=== PATIENT | female | born 1970 | race Caucasian/White ===

== ENCOUNTER 2017-02-16 01:57 | Emergency (ER) | payer OTHER ==
[~2017-02-16] VITALS: Ht 162.6 cm; Wt 109.0 kg
[~2017-02-16 01:57] MED LIST: AMOX1TAB64 PO; LEVO500T8 PO; OXYC1TAB7 PO; SULF1TAB3 PO
[2017-02-16] MEDS ORDERED: ASPIRIN 81 MG TABLET CHEW ONE (03:20)
[2017-02-16] MEDS ORDERED: ASPIRIN 81 MG TABLET CHEW PO ONE (03:30)
[2017-02-16 03:37] LABS: HEMOGLOBIN 12.4 g/dL (11.7-16.4)
[2017-02-16 03:49] LABS: ASPARTATE AMINO TRANSFERASE 12 U/L (15-37); BLOOD UREA NITROGEN 14 mg/dL (7-18)
[2017-02-16 03:55] LABS: IS PT STATUS REG ER OR PRE ER? YES
[2017-02-16 04:54] VITALS: BP 139/74
== END 2017-02-16 05:17 | disposition home or self-care (01) ==
LOC: ED 03:50
DX: R07.89 Other chest pain (principal); F41.1 Generalized anxiety disorder
CPT/HCPCS: 36415; 71010; 80053; 83690; 84484; 85025; 85379; 93005; 99285

== ENCOUNTER 2017-04-18 09:16 | Inpatient (IN) | payer OTHER ==
[~2017-04-18] VITALS: Ht 162.6 cm; Wt 112.5 kg
[2017-04-18] MEDS ORDERED: SODIUM CHLORIDE 0.9% 1,000ML IVBOLUS ONE (10:00)
[2017-04-18] MEDS ORDERED: ACETAMINOPHEN 500 MG TABLET PO ONE (10:00)
[2017-04-18] MEDS ORDERED: SODIUM CHLORIDE FLUSH 10ML SYR IVF ONE (10:00)
[2017-04-18] MEDS ORDERED: ONDANSETRON 2MG/ML, 2ML IVPush ONE (10:00)
[2017-04-18] MEDS ORDERED: MORPHINE SULFATE 4 MG/ML, 1ML ONE (10:21)
[2017-04-18] MEDS ORDERED: ONDANSETRON 2MG/ML, 2ML ONE (10:21)
[2017-04-18] MEDS ORDERED: ACETAMINOPHEN 500 MG TABLET ONE (10:21)
[2017-04-18 10:22] LABS: ASPARTATE AMINO TRANSFERASE 17 U/L (15-37); BLOOD UREA NITROGEN 16 mg/dL (7-18)
[2017-04-18 10:28] LABS: DIFF TOTAL CELLS COUNTED 100 CELL DIFF
[2017-04-18] MEDS: MORPHINE SULFATE 4 MG/ML, 1ML IVPush PRN ×3 (10:30→17:51)
[2017-04-18 10:33] LABS: ANISOCYTOSIS 1+; MICROCYTOSIS 1+; VERIFY COUNTS? YES
[2017-04-18] MEDS ORDERED: CEFTRIAXONE PMX 1GM/50ML 50 ML IVPB ONE (11:00)
[2017-04-18] MEDS ORDERED: AZITHROMYCIN 500 MG in SODIUM CHLORIDE 0.9% 250 ML IVPB ONE (11:00)
[2017-04-18] MEDS ORDERED: OMNIPAQUE 350 MG/ML, 100ML BOTTLE ONE (11:10)
[2017-04-18 11:44] LABS: PATH.CAST-FLAG NOT PRESENT; SPERM-FLAG NOT PRESENT; SRC-FLAG NOT PRESENT; XTAL-FLAG NOT PRESENT; YLC-FLAG NOT PRESENT
[2017-04-18] MEDS ORDERED: CEFTRIAXONE PMX 1GM/50ML 50 ML ONE (11:49)
[2017-04-18 13:04] LABS: SPERM-FLAG NOT PRESENT; SRC-FLAG NOT PRESENT; XTAL-FLAG NOT PRESENT
[2017-04-18] MEDS ORDERED: POLYETHYLENE GLYCOL 17 GM PACKET PO PRN (13:30)
[2017-04-18] MEDS ORDERED: DOCUSATE 100 MG CAPSULE PO PRN (13:30)
[2017-04-18] MEDS ORDERED: BISACODYL 10 MG SUPP PR PRN (13:30)
[2017-04-18] MEDS ORDERED: POTASSIUM CHLORIDE 40 MEQ in SODIUM CHLORIDE 0.9% 500 ML IV ONE (13:30)
[2017-04-18] MEDS ORDERED: PROMETHAZINE 25 MG/ML, 1ML IM PRN (13:30)
[2017-04-18] MEDS ORDERED: SODIUM CHLORIDE FLUSH 10ML SYR IVF PRN (13:30)
[2017-04-18 13:32] LABS: PATH.CAST-FLAG NOT PRESENT; YLC-FLAG NOT PRESENT
[2017-04-18] MEDS ORDERED: LIDOCAINE 1%, 20ML ONE (13:58)
[2017-04-18] MEDS ORDERED: MAGNESIUM SULFATE PMX 2GM/50ML 50 ML IV ONE (14:00)
[2017-04-18] MEDS ORDERED: FLUMAZENIL 0.1 MG/1 ML, 5ML ONE (14:05)
[2017-04-18] MEDS ORDERED: NALOXONE 1 MG/ML, 2ML ONE (14:05)
[2017-04-18] MEDS ORDERED: MIDAZOLAM 1 MG/ML, 5ML ONE (14:05)
[2017-04-18] MEDS ORDERED: FENTANYL PF 100 MCG/2ML ONE (14:05)
[2017-04-18 15:30] VITALS: BP 120/81
[2017-04-18] MEDS: SODIUM CHLORIDE 0.9% 1,000 ML IV SCH (17:43)
[2017-04-18] MEDS: CEFTRIAXONE PMX 1GM/50ML 50 ML IV SCH (17:51)
[2017-04-18] MEDS: ONDANSETRON 2MG/ML, 2ML IVPush PRN (17:51)
[2017-04-18 18:59] VITALS: BP 98/61
[2017-04-18] MEDS: AZITHROMYCIN 500 MG in SODIUM CHLORIDE 0.9% 250 ML IV SCH (22:16)
[2017-04-18] MEDS: morphine SULFATE 10 MG/ML, 1ML IVPush PRN (22:16)
[2017-04-18 22:18] VITALS: BP 108/66
[2017-04-19 03:25] VITALS: BP 143/83
[2017-04-19] MEDS: morphine SULFATE 10 MG/ML, 1ML IVPush PRN ×3 (03:55→17:39)
[2017-04-19] MEDS: SODIUM CHLORIDE 0.9% 1,000 ML IV SCH ×3 (03:55→19:54)
[2017-04-19 05:37] LABS: BLOOD UREA NITROGEN 13 mg/dL (7-18)
[2017-04-19 05:41] LABS: ASPARTATE AMINO TRANSFERASE 38 U/L (15-37); TOTAL IRON BINDING CAPACITY 314 mcg/dL (250-450)
[2017-04-19] MEDS: CEFTRIAXONE PMX 1GM/50ML 50 ML IV SCH ×2 (05:49→17:39)
[2017-04-19 08:29] VITALS: BP 126/79
[2017-04-19] MEDS: SENNA/DOCUSATE TABLET PO SCH (09:23)
[2017-04-19] MEDS: ACETAMINOPHEN 325 MG TABLET PO PRN ×2 (13:15→19:54)
[2017-04-19] MEDS: AZITHROMYCIN 500 MG in SODIUM CHLORIDE 0.9% 250 ML IV SCH (13:15)
[2017-04-19 14:25] VITALS: BP 110/72
[2017-04-19 20:00] VITALS: BP 128/77
[2017-04-20] MEDS: SODIUM CHLORIDE 0.9% 1,000 ML IV SCH ×2 (02:11→10:02)
[2017-04-20 02:15] VITALS: BP 146/89
[2017-04-20] MEDS: CEFTRIAXONE PMX 1GM/50ML 50 ML IV SCH ×2 (05:00→17:10)
[2017-04-20 05:12] LABS: BLOOD UREA NITROGEN 8 mg/dL (7-18)
[2017-04-20] MEDS: ONDANSETRON 2MG/ML, 2ML IVPush PRN ×2 (05:32→12:19)
[2017-04-20 07:15] VITALS: BP 148/77
[2017-04-20] MEDS: LACTOBACILLUS CHEW TABLET PO SCH ×3 (09:03→21:32)
[2017-04-20] MEDS: SENNA/DOCUSATE TABLET PO SCH (09:03)
[2017-04-20] MEDS: ACETAMINOPHEN 325 MG TABLET PO PRN (12:19)
[2017-04-20] MEDS: AZITHROMYCIN 500 MG in SODIUM CHLORIDE 0.9% 250 ML IV SCH (13:07)
[2017-04-20 13:37] VITALS: BP 144/93
[2017-04-20 19:29] VITALS: BP 145/87
[2017-04-21 02:00] VITALS: BP 149/91
[2017-04-21] MEDS: CEFTRIAXONE PMX 1GM/50ML 50 ML IV SCH ×2 (05:14→20:50)
[2017-04-21 06:17] LABS: BLOOD UREA NITROGEN 8 mg/dL (7-18)
[2017-04-21 06:56] VITALS: BP 133/84
[2017-04-21] MEDS ORDERED: POTASSIUM CHLORIDE 20 MEQ TAB.ER.PRT PO ONE (07:30)
[2017-04-21] MEDS: LACTOBACILLUS CHEW TABLET PO SCH ×3 (10:19→20:50)
[2017-04-21] MEDS: SENNA/DOCUSATE TABLET PO SCH (10:19)
[2017-04-21 12:57] VITALS: BP 148/91
[2017-04-21] MEDS: AZITHROMYCIN 500 MG in SODIUM CHLORIDE 0.9% 250 ML IV SCH (14:28)
[2017-04-21] MEDS: ENOXAPARIN 40 MG/0.4 ML SQ SCH (14:28)
[2017-04-21] MEDS: HYDROcodone/APAP 5/325 TABLET PO PRN (17:59)
[2017-04-21 20:00] VITALS: BP 132/78
[2017-04-21] MEDS: GUAIFENESIN 100 MG/5 ML, 10ML UDC PO PRN (20:50)
[2017-04-22 02:30] VITALS: BP 128/72
[2017-04-22 06:52] VITALS: BP 132/76
[2017-04-22 08:10] LABS: BLOOD UREA NITROGEN 13 mg/dL (7-18)
[2017-04-22] MEDS: LACTOBACILLUS CHEW TABLET PO SCH ×3 (09:27→21:25)
[2017-04-22] MEDS: CEFTRIAXONE PMX 1GM/50ML 50 ML IV SCH ×2 (09:27→21:25)
[2017-04-22] MEDS: GUAIFENESIN 100 MG/5 ML, 10ML UDC PO PRN (09:28)
[2017-04-22] MEDS: SENNA/DOCUSATE TABLET PO SCH (09:28)
[2017-04-22] MEDS: HYDROcodone/APAP 5/325 TABLET PO PRN ×2 (09:34→17:57)
[2017-04-22 13:15] VITALS: BP 142/84
[2017-04-22] MEDS: ENOXAPARIN 40 MG/0.4 ML SQ SCH (13:30)
[2017-04-22] MEDS: AZITHROMYCIN 500 MG in SODIUM CHLORIDE 0.9% 250 ML IV SCH (13:30)
[2017-04-22 19:36] VITALS: BP 156/99
[2017-04-23 01:46] VITALS: BP 136/88
[2017-04-23] MEDS: HYDROcodone/APAP 5/325 TABLET PO PRN ×2 (07:55→13:54)
[2017-04-23] MEDS: SENNA/DOCUSATE TABLET PO SCH (07:55)
[2017-04-23] MEDS: LACTOBACILLUS CHEW TABLET PO SCH ×2 (07:55→16:51)
[2017-04-23 08:04] VITALS: BP 146/92
[2017-04-23] MEDS ORDERED: MIDAZOLAM 1 MG/ML, 5ML ONE (08:37)
[2017-04-23] MEDS ORDERED: FENTANYL PF 100 MCG/2ML ONE (08:38)
[2017-04-23] MEDS ORDERED: NALOXONE 1 MG/ML, 2ML ONE (08:38)
[2017-04-23] MEDS ORDERED: FLUMAZENIL 0.1 MG/1 ML, 5ML ONE (08:38)
[2017-04-23] MEDS: CEFTRIAXONE PMX 1GM/50ML 50 ML IV SCH (11:32)
[2017-04-23] MEDS: AZITHROMYCIN 500 MG in SODIUM CHLORIDE 0.9% 250 ML IV SCH (13:53)
[2017-04-23] MEDS: ENOXAPARIN 40 MG/0.4 ML SQ SCH (13:54)
[2017-04-23 14:09] VITALS: BP 136/93
[2017-04-23] MEDS ORDERED: ACID1TAB7 PO (16:37)
[2017-04-23] MEDS ORDERED: LEVO750T26 PO (16:37)
[2017-04-23] MEDS ORDERED: POTA20PA PO (16:39)
[2017-04-23] MEDS ORDERED: HYDR-3138 PO (17:40)
== END 2017-04-23 19:27 | disposition home or self-care (01) | DRG 872 ==
LOC: ED 10:21 → SUATTDRO 13:09 → EDIP 13:10 → 4WST 15:20
PROVIDERS: ADMIT Internal Medicine; ATTEND Internal Medicine
PROC: 0T9130Z Drainage of Left Kidney with Drainage Device, Percutaneous Approach (ICD-10-PCS; principal; 2017-04-18)
PROC: 0T9B70Z Drainage of Bladder with Drainage Device, Via Natural or Artificial Opening (ICD-10-PCS; 2017-04-18)
PROC: 0BBN3ZX Excision of Right Pleura, Percutaneous Approach, Diagnostic (ICD-10-PCS; 2017-04-23)
DX: A41.4 Sepsis due to anaerobes (principal); N13.6 Pyonephrosis; Z68.41 Body mass index [BMI] 40.0-44.9, adult; N39.0 Urinary tract infection, site not specified; E66.01 Morbid (severe) obesity due to excess calories; E87.6 Hypokalemia; I45.81 Long QT syndrome; R71.8 Other abnormality of red blood cells; R91.8 Other nonspecific abnormal finding of lung field; Z93.6 Other artificial openings of urinary tract status; Z90.49 Acquired absence of other specified parts of digestive tract
CPT/HCPCS: 32400; 36415; 50432; 50433; 71010; 71260; 74177; 77012; 80048; 80053; 81001; 83540; 83550; 83605; 83690; 83735; 84145; 84703; 85025; 85610; 85730; 87040; 87077; 87086; 87186; 88305; 93005; 96361; 96365; 96366; 96375; 99156; 99157; C1894; J0456; J0696; J1650; J2250; J2405; J3010; J3480; J3490; Q9967; C1751; C1769; C2625; J2270; J2310; J3475; J7030; J7040; J7050

== ENCOUNTER 2017-04-29 09:33 | Observation (INO) | payer OTHER ==
[~2017-04-29] VITALS: Ht 162.6 cm; Wt 113.9 kg
[~2017-04-29 09:33] MED LIST changes: +ACID1TAB7 PO; +HYDR-3138 PO; +LEVO750T26 PO; +POTA20PA PO
[2017-04-29] MEDS ORDERED: HYDR-3240 PO (10:13)
[2017-04-29] MEDS ORDERED: LACTATED RINGERS 1,000 ML IV SCH (10:13)
[2017-04-29 10:21] VITALS: BP 137/92
[2017-04-29] MEDS ORDERED: FENTANYL PF 250 MCG/5ML ONE ×2 (11:26)
[2017-04-29] MEDS ORDERED: MIDAZOLAM 1 MG/ML, 2ML ONE ×2 (11:26)
[2017-04-29] MEDS ORDERED: DEXAMETHASONE 4 MG/ML, 1ML ONE (11:38)
[2017-04-29] MEDS ORDERED: ONDANSETRON 2MG/ML, 2ML ONE (11:38)
[2017-04-29] MEDS ORDERED: PROPOFOL 10 MG/ML, 20ML ONE (11:38)
[2017-04-29] MEDS ORDERED: KETAMINE 100 MG/ML, 5ML ONE (11:38)
[2017-04-29] MEDS ORDERED: SUCCINYLCHOLINE 20 MG/ML, 10ML ONE (11:38)
[2017-04-29] MEDS ORDERED: PHENYLEPHRINE 10 MG/ML ONE (11:38)
[2017-04-29] MEDS ORDERED: METOCLOPRAMIDE 5 MG/ML, 2ML ONE (11:38)
[2017-04-29] MEDS ORDERED: LABETALOL 5MG/ML, 20ML IV PRN (12:30)
[2017-04-29] MEDS ORDERED: ONDANSETRON 2MG/ML, 2ML IVPush PRN (12:30)
[2017-04-29] MEDS ORDERED: ACETAMINOPHEN 325 MG TABLET PO PRN (12:30)
[2017-04-29] MEDS ORDERED: OXYcodone 5 MG/5 ML ORAL.SOL UDC PO PRN (12:30)
[2017-04-29] MEDS ORDERED: FENTANYL PF 100 MCG/2ML IV PRN (12:30)
[2017-04-29] MEDS ORDERED: HYDROmorphone 1 MG/ML, 1ML IV PRN (12:30)
[2017-04-29] MEDS ORDERED: hydrALAzine 20 MG/ML, 1ML IV PRN (12:30)
[2017-04-29] MEDS ORDERED: MEPERIDINE/PF 25MG/0.5ML IVPush PRN (12:30)
[2017-04-29] MEDS ORDERED: PROMETHAZINE 25 MG/ML, 1ML IV PRN (12:30)
[2017-04-29] MEDS ORDERED: HYDROmorphone 2 MG/ML, 1ML ONE (12:34)
[2017-04-29] MEDS ORDERED: HYDROmorphone 2 MG/ML, 1ML IV PRN (15:00)
[2017-04-29] MEDS ORDERED: ONDANSETRON 2MG/ML, 2ML IV PRN (15:00)
[2017-04-29] MEDS: HYDROcodone/APAP 5/325 TABLET PO PRN (16:24)
[2017-04-29 18:48] VITALS: BP 128/84
[2017-04-30 00:01] VITALS: BP 109/67
[2017-04-30 03:54] VITALS: BP 127/76
[2017-04-30 06:48] VITALS: BP 132/81
[2017-04-30] MEDS: HYDROcodone/APAP 5/325 TABLET PO PRN (09:58)
== END 2017-04-30 12:29 | disposition home or self-care (01) ==
LOC: OUT 09:33 → 4NOR 14:32 → OUT 15:34
PROVIDERS: ADMIT Urology; ATTEND Urology
DX: N20.0 Calculus of kidney (principal); N39.0 Urinary tract infection, site not specified; R11.2 Nausea with vomiting, unspecified; Z87.442 Personal history of urinary calculi
CPT/HCPCS: 50081; 74425; 82360; 88300; 96374; C1727; C1729; C1769; C2617; C2625; C2627; G0378; J0330; J1100; J1170; J2250; J2370; J2405; J2704; J2765; J3010; J7120